=== PATIENT | female | born 1995 | race Caucasian/White ===

== ENCOUNTER 2018-03-13 18:09 | Emergency (ER) | payer SELFPAY ==
[2018-03-13] MEDS ORDERED: Ibuprofen 200 MG TAB ONE (18:51)
== END 2018-03-13 19:42 | disposition home or self-care (01) ==
LOC: ERS 18:09
DX: J02.9 Acute pharyngitis, unspecified (principal)
CPT/HCPCS: 87081; 87430; 99283

== ENCOUNTER 2019-04-23 12:17 | Outpatient (CLI) | payer BC ==
--- NOTE | 2019-04-23 13:20 | RAD ---
LEFT KNEE FOUR VIEWS: HISTORY: Lateral knee pain. COMPARISON: None. FINDINGS: No significant joint effusion. No acute displaced fracture or malalignment. IMPRESSION: No acute osseous abnormality. POS: CET
== END 2019-04-23 12:18 | disposition home or self-care (01) ==
LOC: BICRAD 12:17
PROVIDERS: ATTEND Physician Assistant Medical
DX: M25.562 Pain in left knee (principal)

== ENCOUNTER 2021-04-12 14:05 | Emergency (ER) | payer BC ==
[2021-04-13 01:00] LABS: SARS-CoV-2 PCR by NAA DETECTED (NotDetected)
== END 2021-04-12 16:35 | disposition home or self-care (01) ==
LOC: ERS 14:05
DX: U07.1 COVID-19 (principal)
CPT/HCPCS: 87804; 99283; U0003; U0005